=== PATIENT | male | born 1980 | race Caucasian/White ===

== ENCOUNTER 2016-07-15 15:51 | Outpatient (CLI) | payer OTHER ==
--- NOTE | 2016-07-15 21:28 | MRI Report ---
EXAM: RIGHT ANKLE/HINDFOOT MRI WITHOUT CONTRAST EXAM DATE: 07/15/2016 04:45 PM. CLINICAL HISTORY: Bilateral ankle pain. Chronic Achilles pain for years. Weakness and popping. Bilate ral instability. Injury 2 weeks ago. COMPARISON: None. TECHNIQUE: Multiplanar, multisequence T1-weighted and fluid-sensitive sequences of the ankle/hindfoot without contrast. Other: None. FINDINGS: Bones: No fractures or subluxations. No marrow edema. No bone lesions. Articular Cartilage: Unremarkable. Ligaments: The anterior and posterior tibiofibular, anterior and posterior talofibular, and calcaneof ibular ligaments are intact. The deep and superficial deltoid and spring ligaments are intact. Anterior Tendons: The tibialis anterior, extensor hallucis longus, and extensor digitorum longus tend ons are unremarkable. Medial Tendons: The tibialis posterior, flexor digitorum longus, and flexor hallucis longus tendons a re unremarkable. Lateral Tendons: A longitudinal split tear of the peroneus brevis tendon can be seen on (series 601 a nd series 701, image 16). The peroneus longus tendon is unremarkable. Achilles Tendon: The Achilles tendon is mildly thickened proximally, consistent with tendinosis. Musculature: No edema or fatty atrophy. Other: No effusions. The contents of the sinus tarsi and tarsal tunnel are unremarkable. No plantar f asciitis. The subcutaneous tissues are unremarkable. IMPRESSION: 1. Longitudinal split tear of the peroneus brevis tendon. 2. Mild Achilles tendinosis. [facility] SECTION Referring Provider Line: [phone] SITE ID: [id number]
--- NOTE | 2016-07-21 08:21 | MRI Preliminary Report ---
Exam: MRI Ankle LT W/O IMPRESSION: 1. Longitudinal split tear of the peroneus brevis tendon. 2. Moderate thickening of the Achilles tendon. [facility]CULOSKE[facility] SECTION SITE ID: [id number]
--- NOTE | 2016-07-21 09:19 | MRI Report ---
EXAM: LEFT ANKLE/HINDFOOT MRI WITHOUT CONTRAST EXAM DATE: 07/15/2016 04:00 PM. CLINICAL HISTORY: Bilateral ankle pain for years. Weakness. Bilateral instability. Rolled ankle 2 wee ks ago. COMPARISON: None. TECHNIQUE: Multiplanar, multisequence T1-weighted and fluid-sensitive sequences of the ankle/hindfoot without contrast. Other: None. FINDINGS: Bones: No fractures or subluxations. No marrow edema. No bone lesions. Articular Cartilage: Unremarkable. Ligaments: The anterior and posterior tibiofibular, anterior and posterior talofibular, and calcaneof ibular ligaments are intact. The deep and superficial deltoid and spring ligaments are intact. Anterior Tendons: The tibialis anterior, extensor hallucis longus, and extensor digitorum longus tend ons are unremarkable. Medial Tendons: The tibialis posterior, flexor digitorum longus, and flexor hallucis longus tendons a re unremarkable. Lateral Tendons: The peroneus longus tendon is unremarkable. The brevis tendon has a longitudinal spl it tear lateral to the calcaneus (901 and 801/15). A mild amount of fluid in the peroneal tendon abreu th. Achilles Tendon: At the site of pain, the patient has moderate thickening of the mid Achilles tendon. Musculature: No edema or fatty atrophy. Other: No effusions. The contents of the sinus tarsi and tarsal tunnel are unremarkable. No plantar f asciitis. The subcutaneous tissues are unremarkable. IMPRESSION: 1. Longitudinal split tear of the peroneus brevis tendon. 2. Moderate thickening of the Achilles tendon. [facility]CUL[facility]KE[facility] RAD[facility] SECTION Referring Provider Line: [phone] SITE ID: [id number]
== END 2016-07-15 15:52 | disposition home or self-care (01) ==
LOC: DI 15:51
PROVIDERS: ATTEND Orthopaedic Surgery
DX: S86.311A Strain of muscle(s) and tendon(s) of peroneal muscle group at lower leg level, right leg, initial encounter (principal); M76.61 Achilles tendinitis, right leg

== ENCOUNTER 2016-08-21 19:04 | Outpatient (CLI) | payer OTHER ==
--- NOTE | 2016-08-22 12:04 | Ultrasound Report ---
RENAL ULTRASOUND: 08/21/2016 CLINICAL INDICATION: History of nephrolithiasis. TECHNIQUE: Real-time scanning was performed with [employer] static images obtained. FINDINGS: The right kidney measures 11.4 x 5.7 x 5.0 cm, and the left kidney measures 12.1 x 6.0 x 5 .9 cm. No hydronephrosis, solid renal lesion, or perinephric collection is seen. There are small ec hogenic structures in the collecting systems bilaterally, likely representing small nonobstructing ca lculi, measuring approximately 5 mm. Prevoid, the bladder measures 8.4 x 8.2 x 7.7 cm, yielding a prevoid volume of 277 mL. Bilateral ure teral jets are visualized. No significant postvoid residual. IMPRESSION: LIKELY SMALL BILATERAL NONOBSTRUCTING RENAL CALCULI. JOB #: [id number] EXT JOB #:[id number]
== END 2016-08-21 19:05 | disposition home or self-care (01) ==
LOC: DI 19:04
PROVIDERS: ATTEND Urology
DX: Z87.442 Personal history of urinary calculi (principal)
CPT/HCPCS: 76770